=== PATIENT | male | born 1965 | race Hispanic/Latino ===

== ENCOUNTER 2022-09-26 14:13 | Emergency (ER) | payer OTHER ==
[~2022-09-26] VITALS: Ht 177.8 cm; Wt 115.7 kg
[2022-09-26] MEDS ORDERED: ACETAMINOPHEN 325 MG TAB ONE (15:50)
[2022-09-26] MEDS ORDERED: ACETAMINOPHEN 325 MG TAB PO ONE (16:00)
[2022-09-26 17:00] VITALS: O2SAT 100
== END 2022-09-26 17:58 | disposition other institution (70) ==
LOC: ER 14:20
DX: S02.2XXB Fracture of nasal bones, initial encounter for open fracture (principal); S02.401A Maxillary fracture, unspecified side, initial encounter for closed fracture; S02.2XXA Fracture of nasal bones, initial encounter for closed fracture; W51.XXXA Accidental striking against or bumped into by another person, initial encounter; Y93.66 Activity, soccer; Y92.322 Soccer field as the place of occurrence of the external cause
CPT/HCPCS: 70450; 70486; 72125; 72128; 72131; 99284; J0690; J7050